=== PATIENT | male | born 1945 | race Two or more races ===

== ENCOUNTER 2018-11-12 21:25 | Day surgery (SDC) | payer MEDICARE ==
[~2018-11-12] VITALS: Ht 175.3 cm; Wt 74.8 kg
[2018-11-12] MEDS ORDERED: CALCIUM CHLOR(10%) 100MG/ML 10ML SYRINGE IV ONE (21:31)
[2018-11-12] MEDS ORDERED: SODIUM BICARBONATE 8.4% INJ 50ML SYRINGE IV ONE (21:31)
[2018-11-12] MEDS ORDERED: ATROPINE SULF 1 MG/10ml SYR IV ONE (21:31)
[2018-11-12] MEDS ORDERED: LIDOCAINE 4MG/ML IV SOLN 500ML BAG IV ONE (21:31)
[2018-11-12] MEDS ORDERED: EPINEPHrine HCL 1 MG/10 ML SYRG IV ONE (21:31)
[2018-11-12] MEDS ORDERED: ONDANSETRON HCL 4 MG/2 ML VIAL ONE ×2 (21:40→23:25)
[2018-11-12] MEDS ORDERED: ONDANSETRON HCL 4 MG/2 ML VIAL IV ONE (21:45)
[2018-11-12 21:57] VITALS: BP 115/83
[2018-11-12 21:57] LABS: Basophils # (auto) 0.1 uL; Basophils % (auto) 0.6 % (0.0-2.0); Eosinophils # (auto) 0 uL; Eosinophils % (auto) 0.1 % (0.0-7.0); Hematocrit 39.7 % (41.0-53.0); Hemoglobin 12.9 g/dL (13.5-17.5); Lymphocytes # (auto) 0.7 uL; Lymphocytes % (auto) 6.1 % (10.0-50.0); Mean Corpuscular Hemoglobin 30.9 pg (28.0-32.0); Mean Corpuscular Hgb Conc. 32.5 g/dL (32.0-36.0); Mean Corpuscular Volume 95.1 fL (80.0-100.0); Monocytes # (auto) 0.6 uL; Monocytes % (auto) 5.1 % (0.0-12.0); Neutrophils # (auto) 9.9 uL; Neutrophils % (auto) 88.1 % (37.0-80.0); Platelet Count (auto) 190 10^3/uL (140-450); Red Blood Cells 4.17 10^6/uL (4.5-5.90); Red Cell Distribution Width 14.6 % (11.8-14.3); White Blood Cell 11.2 10^3/uL (4.4-10.8)
[2018-11-12] MEDS ORDERED: IOHEXOL 350 MG/ML 100ML IJ ONE (22:06)
[2018-11-12] MEDS ORDERED: LIDOCAINE 2%HCL (LOCAL ANESTH.) INJ 20ML MDV ONE (22:07)
[2018-11-12] MEDS ORDERED: fentaNYL CITRATE 100 MCG/2 ML VL ONE (22:11)
[2018-11-12] MEDS ORDERED: ATROPINE SULF 1 MG/10ml SYR ONE (22:11)
[2018-11-12] MEDS ORDERED: EPINEPHrine HCL 1 MG/10 ML SYRG ONE (22:11)
[2018-11-12] MEDS ORDERED: SODIUM CHL 0.9% 0 ML ONE (22:11)
[2018-11-12] MEDS ORDERED: MIDAZOLAM HCL 1MG/1ML-2 ML VIAL ONE (22:11)
[2018-11-12] MEDS ORDERED: ANGIOMAX 250 MG VIAL IV ONE (22:11)
[2018-11-12] MEDS ORDERED: EPTIFIBATIDE INJ (2MG/ML) 10ML VIAL IV ONE (22:12)
[2018-11-12 22:13] LABS: Albumin 3.3 g/dL (3.4-5.0); Calcium 8.1 mg/dL (8.5-10.1); Magnesium 2.2 mg/dL (1.6-2.6); Potassium 3.9 mmol/L (3.5-5.1)
[2018-11-12] MEDS ORDERED: DOPamine 1600MCG/ML D5W 250 ML IV ONE (22:18)
[2018-11-12] MEDS ORDERED: ADENOSINE 6 MG/2 ML INJ IV ONE (22:19)
[2018-11-12 22:20] LABS: BUN/Creatinine Ratio 21.6; Bilirubin, Total 1.5 mg/dL (0.2-1.0); Total Protein 6.8 g/dL (6.4-8.2)
[2018-11-12 22:29] LABS: INR 1.43 (0.9-1.15); Partial Thromboplastin Time 27.1 sec (23.78-33.04); Prothrombin Time 14.2 sec (9.27-12.13)
[2018-11-12] MEDS ORDERED: IODIXANOL 320MG/ML 100ML BTL IV ONE (23:11)
[2018-11-12] MEDS ORDERED: SODIUM BICARBONATE 8.4 % INJ 50ML VIAL IV ONE (23:35)
== END 2018-11-12 23:35 | disposition expired ==
LOC: EDBD 21:25 → ER 21:30 → CATH 22:03 → ER 23:35
PROVIDERS: ATTEND Internal Medicine Cardiovascular Disease
DX: I25.10 Atherosclerotic heart disease of native coronary artery without angina pectoris (principal); I10 Essential (primary) hypertension; E11.9 Type 2 diabetes mellitus without complications; Z98.890 Other specified postprocedural states
CPT/HCPCS: 33967; 36415; 71045; 80053; 83735; 84484; 85025; 85610; 85730; 86850; 86900; 86901; 92920; 92921; 92950; 93005; 94761; 96374; 99291; A6257; C1726; C1769; C1874; C1887; C1894; C9600; J0153; J0171; J1265; J1327; J1644; J2001; J2250; J2405; J3010; J7030; Q9967; 99152